=== PATIENT | male | born 1970 | race Two or more races ===

== ENCOUNTER 2024-06-14 11:41 | Inpatient (IN) | payer OTHER ==
[~2024-06-14] VITALS: Ht 167.6 cm; Wt 90.3 kg
[2024-06-14 16:54] VITALS: BP 113/71; PULSE 90; RESP 18; TEMP 98.2; O2SAT 95
[2024-06-14 17:17] LABS: Eosinophils # (auto) 0.2 10 ^3/uL (0-0.8); Monocytes # (auto) 0.7 10 ^3/uL (0-1.3)
[2024-06-14 17:18] LABS: Basophils # (auto) 0 10 ^3/uL (0-0.2); Basophils % (auto) 0.7 % (0.0-2.0); Eosinophils % (auto) 2.4 % (0.0-7.0); Hematocrit 38.2 % (41.0-53.0); Hemoglobin 12.5 g/dL (13.5-17.5); Lymphocytes # (auto) 1.9 10 ^3/uL (0.4-5.4); Lymphocytes % (auto) 26.7 % (10.0-50.0); Mean Corpuscular Hemoglobin 23.4 pg (28.0-32.0); Mean Corpuscular Hgb Conc. 32.6 g/dL (32.0-36.0); Mean Corpuscular Volume 71.9 fL (80.0-100.0); Monocytes % (auto) 9.9 % (0.0-12.0); Neutrophils # (auto) 4.3 10 ^3/uL (1.6-8.6); Neutrophils % (auto) 60.3 % (37.0-80.0); Nucleated Red Blood Cells % 0.1 %; Platelet Count (auto) 249 10^3/uL (140-450); Red Blood Cells 5.31 10^6/uL (4.5-5.90); Red Cell Distribution Width 18.3 % (11.8-14.3); White Blood Cell 7.1 10^3/uL (4.4-10.8)
[2024-06-14 17:43] VITALS: PULSE 90; RESP 18
[2024-06-14 18:54] VITALS: PULSE 78
--- NOTE | 2024-06-14 19:18 | DVHINCON2 ---
Date Seen: June 14, 2024 Referring Physician MD Marlon Reason for Consultation Chest pain History of Present Illness This is a Gabonese-speaking 53-year-old male patient who was seen in the outpatient cardiac clinic by for recurrent chest pain. The patient was subsequently admitted to this facility for further workup. He is currently incarcerated. The patient reports he has been experiencing intermittent chest pain for the last few years. He describes it as unprovoked, intermittent, "pinprick-like" in nature, left-sided and nonradiating. He denies any associated symptoms. Initial twelve lead electrocardiogram done at time of assessment and reveals normal sinus rhythm with left bundle branch block. Unable to verify if this is a new left bundle branch block given that this is t he patient's first visit to this facility. Initial troponin levels have been negative. Significant past medical history includes hypertension, dyslipidemia, low testosterone with testosterone hormone replacement, previous tobacco use and previous methamphetamine use. The patient denies any previous cardiac workup. Past Medical History Past medical history reviewed. No other significant than mentioned above. Past Surgical History Cholecystectomy Family History Family history reviewed. Social History Patient has a 10 pack-year history, quit smoking approximately 12 years ago Admits to previous methamphetamine use, last time in 2009 Denies any alcohol use Allergies: Coded Allergies: Penicillins (Verified Allergy, Unknown, 06/14/24) PER PT Home Meds Home medications reviewed. Review of Systems Constitutional: No symptom reported Ears, Nose, & Throat: No symptom reported Eyes: No symptom reported Neurological: No symptoms reported Pulmonary/Respiratory: No symptoms reported Cardiovascular: Chest pain Gastrointestinal: No symptom reported Genitourinary: No symptom reported Musculoskeletal: No symptom reported Skin: No symptom reported Psychiatric: No symptom reported Endocrine: No symptom reported Hematologic/Lymphatic: No symptom reported Vital Signs Vital Signs Date Time Temp Pulse Resp B/P (MAP) Pulse Ox O2 Delivery O2 Flow Rate FiO2 06/14/24 18:54 78 06/14/24 17:43 18 Room Air* 0 21 06/14/24 16:54 98.2 113/71 (85) 95 98.2 Physical Exam General Appearance: Cooperative. Obese Pulmonary/Respiratory: Clear, bilateral breaths sounds. Cardiovascular/Chest: Regular rate and rhythm. Peripheral Pulses: 2+ Radial (R). 2+ Radial (L). 2+ Pedal (R). 2+ Pedal (L) Abdominal Exam: Normal bowel sounds. Ankle Exam: Negative ankle edema Lower extremities: Negative lower extremity edema Neuro/Mental Status: A/OX4, coherent. Thoughts/Psych: Normal thought pattern. Appropriate mood and affect. Good judgment and insight. Appearance: No acute distress. Skin Exam: Gynecomastia. Normal color. Warm and dry. Labs/Diagnostic Data Labs Test 06/14/24 18:15 06/14/24 17:02 Range/Units Troponin I High Sensitivity 3 L </=54 ng/L White Blood Count 7.1 4.4-10.8 10^3/uL Red Blood Count 5.31 4.5-5.90 10^6/uL Hemoglobin 12.5 L 13.5-17.5 g/dL Hematocrit 38.2 L 41.0-53.0 % Mean Corpuscular Volume 71.9 L 80.0-100.0 fL Mean Corpuscular Hemoglobin 23.4 L 28.0-32.0 pg Mean Corpuscular Hemoglobin Concent 32.6 32.0-36.0 g/dL Red Cell Distribution Width 18.3 H 11.8-14.3 % Platelet Count 249 140-450 10^3/uL Mean Platelet Volume 7.4 6.9-10.8 fL Neutrophils (%) (Auto) 60.3 37.0-80.0 % Lymphocytes (%) (Auto) 26.7 10.0-50.0 % Monocytes (%) (Auto) 9.9 0.0-12.0 % Eosinophils (%) (Auto) 2.4 0.0-7.0 % Basophils (%) (Auto) 0.7 0.0-2.0 % Neutrophils # (Auto) 4.3 1.6-8.6 10 ^3/uL Lymphocytes # (Auto) 1.9 0.4-5.4 10 ^3/uL Monocytes # (Auto) 0.7 0-1.3 10 ^3/uL Eosinophils # (Auto) 0.2 0-0.8 10 ^3/uL Basophils # (Auto) 0 0-0.2 10 ^3/uL Nucleated Red Blood Cells 0.1 % B-Type Natriuretic Peptide 12.58 0-100 pg/mL Assessment Chest pain, rule out coronary ischemia Rule out structural heart disease Hypertension Dyslipidemia Low testosterone with previous hormone replacement Gynecomastia History of tobacco use History of methamphetamine use Obesity Plan/Recommendation We will continue with the following plan/recommendations (Dr. Tineo): Case discussed with . We will proceed with obtaining a transthoracic echocardiogram to evaluate cardiac function. Given the patient's clinical presentation, comorbidities, and twelve lead electrocardiogram, we will offer the patient a nuclear stress test. Plan discussed with the patient full detail. Patient agreeable. We will schedule the patient at soonest availability on 06/15/2024. In the meantime, continue with blood pressure control, single antiplatelet therapy, and lipid-lowering agent. Close Cardiac monitoring and notify cardiology team for any ECG changes. Thank you for allowing us to care for this patient. Please call with any questions or concerns. Critical care time spent: 43 minutes This medical document was created using an electronic medical record system with voice recognition software and computerized dictation system. Although this document has been carefully reviewed, there might still be some phonetic and typographical errors. Occasional wrong-word or ``sound-alike substitutions may have occurred due to the inherent limitations of voice recognition software. These areas are purely typographical due to imperfections of the software programs and do not reflect any compromise in the patient's medical care. Please read the chart carefully and recognize, using context, where these substitutions have occurred. Plan discussed with: Patient NYHA Physical activity limitations: NA Date of Service: June 14, 2024 Billing Provider: LALI DEGROOT Cardiology Common Codes: 10677-XFULXSK INP/OBS CARE (High) Cardiology Consultation Codes: 04433-[id number] CONSULT <45MIN LALI DEGROOT June 14, 2024 19:18
--- NOTE | 2024-06-14 19:29 | DVH ---
CHEST RADIOGRAPH Indication: CHEST PAIN Technique: Single frontal view of the chest was obtained COMPARISON: None FINDINGS: Lines and Tubes: None Lungs: Clear Pleura: No effusion. No pneumothorax. Cardiomediastinal contours: Unremarkable IMPRESSION: No abnormality demonstrated.
[2024-06-14 20:00] VITALS: PULSE 84; PULSE 89; RESP 20; O2SAT 92
[2024-06-14] MEDS ORDERED: NITROGLYCERIN 0.4 MG SL TAB SL PRN (20:30)
[2024-06-14] MEDS ORDERED: HYDROcodone-ACET 10/325MG TAB PO PRN (20:30)
[2024-06-14 20:31] LABS: Alanine Aminotransferase 21 U/L (7-40); Albumin 4.5 g/dL (3.2-4.8); Anion Gap 11 (5-15); Aspartate Aminotransferase 19 U/L (13-40); BUN/Creatinine Ratio 15.4 (10.0-20.0); Bilirubin, Total 0.7 mg/dL (0.2-1.0); Blood Urea Nitrogen 12 mg/dL (9-23); Calcium 9.6 mg/dL (8.7-10.4); Carbon Dioxide 26 mmol/L (20-31); Chloride 104 mmol/L (98-107); Cholesterol 135 mg/dL (< 200); LDL Cholesterol 89 mg/dL (< 100); Potassium 3.7 mmol/L (3.5-5.1); Sodium 141 mmol/L (136-145); Total Protein 7.6 g/dL (5.7-8.2); Triglycerides 103 mg/dL (< 150)
[2024-06-14 20:32] LABS: Alkaline Phosphatase 138 U/L (46-116); Glucose 121 mg/dL (74-106); HDL Cholesterol 39 mg/dL (40-59)
[2024-06-14 21:00] VITALS: BP 121/71; PULSE 84; RESP 20; TEMP 98; O2SAT 92
--- NOTE | 2024-06-14 21:09 | DVHHP ---
ADMIT DATE: 06/14/2024 ATTENDING PHYSICIAN: Marito Mason MD CHIEF COMPLAINT: Chest pain. HISTORY OF PRESENT ILLNESS: This is a 53-year-old male, [facility] inmate, who was seen in cardiac clinic today for chest pain, which is described as 3-4 times a week, left chest, pinching, 5-8/10 on scale, without radiation, not associated with any activities, usually lasting 5-15 minutes and with episodes of diaphoresis, but no loss of consciousness, which has been ongoing for the last 3 months. Due to nature of symptoms, the patient is now being admitted for further management. PAST MEDICAL HISTORY: He has hypertension, diabetes, and hyperlipidemia. PAST SURGICAL HISTORY: He has had cholecystectomy. FAMILY HISTORY: Father had heart disease. Mother had diabetes. SOCIAL HISTORY: He has had 20 pack years of smoking and quit greater than 10 years ago. He had moderate use of alcohol and he had frequent use of crystal methamphetamine. He is . He has 2 children, normally resides in [place], has been incarcerated for 14 years with 2 left. Denies any exercise program. REVIEW OF SYSTEMS: GENERAL: Denies any recent weight changes. HEENT: Denies any loss of consciousness, severe headache, blurring of vision. CARDIOVASCULAR: As per HPI. RESPIRATORY: Denies cough, shortness of breath, hemoptysis. GI: Denies nausea, vomiting, diarrhea, or constipation. : Noncontributory. NEURO: Denies any focal deficits. PHYSICAL EXAMINATION: VITAL SIGNS: Temperature is 98.2 with a blood pressure of 113/71, a heart rate of 90, respiratory rate of 18, O2 sats 95% on room air. HEENT: Normocephalic, anicteric sclerae, pink conjunctivae. EOMI. NECK: Supple. No JVD, mass, or bruit. CHEST: Good equal excursion bilateral, nontender. HEART: S1, S2 regular. There is no click, murmur, gallop. LUNGS: Good equal air exchange bilateral. Clear to auscultation. ABDOMEN: Soft, benign. NEURO: He is awake, alert and oriented x 4. LAB DATA: We have WBC of 7.1 with a hemoglobin 12.5 and a platelet of 249. Chemistries are pending. Troponin is 3, repeat is also 3. EKG shows sinus rhythm at approximately 80 beats per minute. There is no left bundle branch block. Chest x-ray is no abnormality noted. ASSESSMENT: Chest pain, rule out PR; hypertension; and diabetes. PLAN: Admit to tele. Condition stable. Regular diet. IV hep lock, serial troponins. We will hold metformin. We will start aspirin and atorvastatin. We will use Lovenox for DVT prophylaxis. We will continue with lisinopril. We will get a Cardiology consult with Dr. Tineo. MD RHONDA Narayanan/HEM TID: [id number] RECEIPT: [id number]
[2024-06-14] MEDS: ATORVASTATIN 20 MG TAB PO SCH (22:57)
[2024-06-15] VITALS (13 sets, daily range): BP systolic 95–124; BP diastolic 51–78; PULSE 62–94; RESP 12–20; TEMP 97.3–98.3; O2SAT 92–96
[2024-06-15] MEDS: REGADENOSON 0.4 MG/5 ML SYRG IV ONE (08:00)
--- NOTE | 2024-06-15 08:04 | ECG ---
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
[2024-06-15] MEDS: ASPirin 81 mg TAB PO SCH (10:37)
[2024-06-15] MEDS: LISINOPRIL 5 MG TAB PO SCH (10:37)
[2024-06-15] MEDS: ENOXAPARIN SOD 40 MG/0.4 ML SYRINGE SC SCH (10:38)
--- NOTE | 2024-06-15 10:49 | DVHPN2 ---
Consult Progress Note Date Seen: June 15, 2024 Subjective Review of Systems: CVS:Normal, RESPIRATORY:Normal, NEURO:Normal Objective vital signs Vital Sign Date Time Temp Pulse Resp B/P (MAP) Pulse Ox O2 Delivery O2 Flow Rate FiO2 06/15/24 10:37 117/62 06/15/24 08:59 98.3 77 19 93 98.3 06/15/24 08:20 Room Air* 0 21 Total Intake and Output 06/14/24 06/14/24 06/15/24 15:00 23:00 07:00 Intake Total 0 ml Balance 0 ml medications Current Medications Medications Dose Ordered Sig/Jesse Route Start Time Stop Time Status Last Admin Dose Admin Aspirin 81 mg DAILY PO 06/15/24 10:00 06/15/24 10:37 81 MG Atorvastatin Calcium 20 mg HS PO 06/14/24 22:00 06/14/24 22:57 20 MG Lisinopril 5 mg DAILY PO 06/15/24 10:00 06/15/24 10:37 5 MG Enoxaparin Sodium 40 mg DAILY SC 06/15/24 10:00 06/15/24 10:38 40 MG Acetaminophen/ Hydrocodone Bitart 1 tab Q4HP PRN PO 06/14/24 20:30 Nitroglycerin 0.4 mg Q5MINP PRN SL 06/14/24 20:30 Examination: LUNGS:Normal, CVS:Normal, NEURO:Normal laboratory and microbiology Laboratory Tests 06/14/24 17:02 Test 06/14/24 17:02 Range/Units Serum Glucose 121 H 74-106 mg/dL Problem List/Assessment/Plan Problem List/Assessment/Plan Chest pain rule out coronary ischemia Rule out structural heart disease Hypertension Dyslipidemia Pre-diabetes, newly diagnosed Low testosterone with previous hormone replacement Gynecomastia History of tobacco use History of methamphetamine use Obesity Plan/Recommendation (Dr. Tineo) Case discussed with . We will proceed with obtaining a transthoracic echocardiogram to evaluate cardiac function. Given the patient's clinical presentation, comorbidities, and twelve lead electrocardiogram, he has been scheduled for a coronary angiogram with cardiac catheterization on 06/15/2024. All risks and benefits of the procedure were discussed in detail. All questions answered. In the meantime, continue with blood pressure control, single- antiplatelet therapy, and lipid-lowering agent. Close Cardiac monitoring and notify cardiology team for any ECG changes. Thank you for allowing us to care for this patient. Please call with any questions or concerns. This medical document was created using an electronic medical record system with voice recognition software and computerized dictation system. Although this document has been carefully reviewed, there might still be some phonetic and typographical errors. Occasional wrong-word or ``sound-alike substitutions may have occurred due to the inherent limitations of voice recognition software. These areas are purely typographical due to imperfections of the software programs and do not reflect any compromise in the patient's medical care. Please read the chart carefully and recognize, using context, where these substitutions have occurred. Plan discussed with: Patient, Other Date of Service: June 15, 2024 Billing Provider: SHAKIR LAMAS Cardiology Common Codes: [id number]-[id number] INP/OBS CARE(Mod) SHAKIR LAMAS June 15, 2024 10:49
[2024-06-15 11:36] LABS: Anion Gap 9 (5-15); Carbon Dioxide 27 mmol/L (20-31); Chloride 105 mmol/L (98-107); Potassium 3.9 mmol/L (3.5-5.1); Sodium 141 mmol/L (136-145)
[2024-06-15 11:37] LABS: Calcium 9.7 mg/dL (8.7-10.4)
[2024-06-15 11:38] LABS: INR 0.98 (0.9-1.15); Partial Thromboplastin Time 28.8 SEC (24.5-34.5); Prothrombin Time 10.4 sec (9.3-11.8)
[2024-06-15 11:42] LABS: BUN/Creatinine Ratio 14.1 (10.0-20.0); Blood Urea Nitrogen 10 mg/dL (9-23)
[2024-06-15 11:43] LABS: Glucose 117 mg/dL (74-106)
--- NOTE | 2024-06-15 12:55 | DVHSR ---
APPROVED REPORT EXAM: Two-dimensional and M-mode echocardiogram with Doppler and color Doppler. Blood Pressure: 100/67 mmHg INDICATION Eval cardiac function RISK FACTORS Height: 66, Weight: 196 DIMENSIONS LVDd4.3 (3.8-5.7cm)LA (2D) (1.9-4.0cm)Aortic Root4.1 (2.0-3.7cm) LVDs3.2 (2.5-4.0cm)LA (MM) (1.9-4.0cm)Aortic Cusp Exc1.9 (1.5-2.0cm) EF (%) 50.0 (55-70%)Rt. Atrium (1.9-4.0cm)Asc. Aorta cm IVSd1.1 (0.7-1.1cm)RV (D) (1.8-2.4cm) PWd1.2 (0.7-1.1cm) Mitral Valve MitralMitral Stenosis E wave0.47m/sMV Mean GR.mmHg A wave0.83m/sMV Peak GR.mmHg E/A ratio0.62D MVAcm2 DECEL [id number] 1/2 Scvo61yd IVRTmsDop MVA3.04cm2 Aortic Valve Aortic ValveAortic Stenosis V10.87m/Giorgi Mean GR.3mmHg V21.12m/Giorgi Peak GR.5mmHg LVOT Diameter2.1 (1.8-2.4cm)Doppler AVA2.69cm2 AI P 1/2 Dhgw789.22ms Pulmonic Valve V20.95m/s Other Information Technically limited study due to body habitus. Conclusion lvef 50% by visual estimate low normal function normal rv function normal atria no severe valve abnormalities noted
[2024-06-15] MEDS: fentaNYL CITRATE 100 MCG/2 ML VL ONE ×2 (13:11→14:09)
[2024-06-15] MEDS: VERAPAMIL 2.5MG/ML INJ 2ML VIAL IV ONE ×2 (13:11→14:08)
[2024-06-15] MEDS: ANGIOMAX 250 MG VIAL IV ONE (13:11)
[2024-06-15] MEDS: MIDAZOLAM HCL 2MG/2ML 2ml VIAL (1mg/ml) ONE ×2 (13:11→14:09)
[2024-06-15] MEDS: SODIUM CHL 0.9% 0 ML ONE (13:11)
[2024-06-15] MEDS: LIDOCAINE 2%HCL (LOCAL ANESTH.) INJ 20ML MDV ONE ×2 (13:12→14:09)
[2024-06-15] MEDS: IODIXANOL 320MG/ML 100ML BTL IV ONE (13:59)
--- NOTE | 2024-06-15 14:39 | DVHOP2 ---
Operative Report Operative Report CARDIAC REGULATORY SCIENTIST PROCEDURE REPORT [place], [place] Date of Service: 06/15/24 Business Practices Supervisor: Brandon Robles MD PROCEDURES PERFORMED: Coronary angiogram, left heart catheterization, conscious sedation administration and supervision, less than 15 minutes; fluoroscopy use and interpretation. PREOPERATIVE DIAGNOSES: ACS POSTOP DIAGNOSIS: ACS DESCRIPTION OF PROCEDURE: The patient or appropriate family signed informed consent understanding the risks, benefits and alternatives of the procedure, they wished to proceed. The patient was brought to the cardiac carpenter labor supervisor [place] The patient was prepped in a sterile fashion. Sedation was used per cardiac cath protocol. I administered 2 mL of 2% lidocaine to the right wrist. With an antegrade front wall puncture. I cannulated the right radial artery and placed a 6-[place] slender. Next, an intra-arterial spasmolytic was administered. Next, a - 6[place] catheter and JR4 and were used for coronary angiogram and LVEDP measurement and pressure pullback. At the completion of procedure, all guides and wires were removed, and there were no immediate complications. FINDINGS: RCA: Moderate vessel off the right sinus of Valsalva, there is no severe flow limiting stenosis. 20% prox RCA stenosis. severe sluggish flow suggestive of microvascular disesae LEFT MAIN: Moderate size left main, it bifurcates into LAD and circumflex. no stenosis. CIRCUMFLEX: Moderate caliber vessel coming off the left main with no flow limiting stenosis. LAD: LAD is a moderate caliber vessel coming of the left main. no severe stenosis. mid LAD with 20% stenosis, distal LAD with 30% stenosis. very sluggigsh flow suggestive of microvascular disesae LVEDP of 17 mmhg CONCLUSIONS: 1. mild cad 2. microvascular disease PLAN: Aggressive risk factor modification and medical management for the patient. DAPT x 1 year uninterrupted BRANDON ROBLES MD June 15, 2024 14:39
[2024-06-15] MEDS: HEPARIN SODIUM (PORCINE) 5000 UNITS/ML 1ML VIAL ONE (14:45)
--- NOTE | 2024-06-15 15:19 | DVHPN ---
DATE: 06/15/2024 ATTENDING PHYSICIAN: Dr. Marito Mason SUBJECTIVE: The patient is lying in bed. He is currently having blood drawn. He is comfortable. He is in no active distress. He states he does not have chest pain at this time nor does he have any other complaints. Specifically, he denies cough, shortness of breath, fever. No untoward events have been noted. OBJECTIVE: VITAL SIGNS: Temperature is 98.3 with a blood pressure of 117/62, heart rate of 77, respiratory rate of 19, O2 saturation is 93% on room air. HEART: S1, S2 regular. No click, murmur, or gallop. LUNGS: Good equal air exchange bilateral. Clear to auscultation. ABDOMEN: Soft, nondistended, nontender. Bowel sounds positive. No mass, guarding, or rebound. NEUROLOGIC: He is awake, alert, and oriented x4 without focal deficits. LABORATORY DATA: Troponin x2 is negative. Thyroid is normal. TSH is normal. ASSESSMENT: * Chest pain. * Hypertension. * Diabetes. PLAN: We will continue with aspirin and atorvastatin for the cardiac protection, Lovenox for DVT prophylaxis, and lisinopril for hypertension. I have encouraged the patient to ambulate. He is currently scheduled for angiogram. MD RHONDA Narayanan/SU TID: [id number] RECEIPT: [id number]
[2024-06-16] VITALS (7 sets, daily range): BP systolic 99–107; BP diastolic 52–71; PULSE 77–88; RESP 15–17; TEMP 36.7; O2SAT 93–96
[2024-06-16 07:21] LABS: Basophils # (auto) 0 10 ^3/uL (0-0.2); Hemoglobin 12.6 g/dL (13.5-17.5); Monocytes # (auto) 0.7 10 ^3/uL (0-1.3); Neutrophils # (auto) 3.7 10 ^3/uL (1.6-8.6)
[2024-06-16 07:25] LABS: Basophils % (auto) 0.3 % (0.0-2.0); Eosinophils # (auto) 0.3 10 ^3/uL (0-0.8); Eosinophils % (auto) 3.8 % (0.0-7.0); Hematocrit 38.3 % (41.0-53.0); Lymphocytes % (auto) 30.5 % (10.0-50.0); Mean Corpuscular Hemoglobin 23.6 pg (28.0-32.0); Mean Corpuscular Hgb Conc. 32.8 g/dL (32.0-36.0); Mean Corpuscular Volume 71.9 fL (80.0-100.0); Monocytes % (auto) 9.8 % (0.0-12.0); Neutrophils % (auto) 55.6 % (37.0-80.0); Platelet Count (auto) 230 10^3/uL (140-450); Red Blood Cells 5.32 10^6/uL (4.5-5.90); White Blood Cell 6.7 10^3/uL (4.4-10.8)
[2024-06-16 07:33] LABS: Anion Gap 8 (5-15); Carbon Dioxide 24 mmol/L (20-31); Chloride 106 mmol/L (98-107); Potassium 3.9 mmol/L (3.5-5.1); Sodium 138 mmol/L (136-145)
[2024-06-16 07:35] LABS: Calcium 9.4 mg/dL (8.7-10.4)
[2024-06-16 07:39] LABS: BUN/Creatinine Ratio 18.2 (10.0-20.0); Blood Urea Nitrogen 12 mg/dL (9-23); Glucose 99 mg/dL (74-106)
[2024-06-16] MEDS ORDERED: LISI-275 PO (16:12)
[2024-06-16] MEDS ORDERED: ASPI-325 PO (16:12)
--- NOTE | 2024-06-16 17:25 | DVHDS ---
DATE OF DISCHARGE: 06/16/2024 ATTENDING PHYSICIAN: Marito Mason MD CHIEF COMPLAINT ON ADMISSION: Chest pain. HISTORY OF PRESENT ILLNESS: This is a 53-year-old male, [facility] inmate who was seen in cardiac clinic on the day of admission for chest pain. Due to the nature of symptoms with a history of diabetes and hypertension, the patient was referred for admission for further workup. ADMITTING DIAGNOSES: Chest pain, rule out myocardial infarction, hypertension, and diabetes. HOSPITAL COURSE: The patient was admitted to telemetry in stable condition. He was started on a regular diet. Metformin was withheld. He was resumed on aspirin and atorvastatin. He was started on Lovenox for DVT prophylaxis. He was also continued on lisinopril for hypertension. Cardiology consult with Dr. Tineo was requested. HOSPITAL COURSE: The patient admitted to [facility]. Serial troponins revealed normal x 3. EKG was unremarkable. The patient was taken to the cardiac clay processing labourer, underwent coronary angiography. She was found to have mild CAD and microvascular disease. Tolerated the procedure well. Returned to the medical floor, peoples hospitaletry, observed overnight without any untoward events. The patient was informed of the findings. I also informed the patient treatment is lifestyle modification, in which she should consider exercise as well as a diet conducive to good heart health, he agrees. He has now been discharged back to the care of the [facility] authorities in good and stable condition. 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 Chest pain, acute myocardial infarction ruled out. Diabetes and hypertension. DISCHARGE MEDICATIONS: Instructed to resume prehospitalization medications and to follow up with [facility] p.r.n. MD RHONDA Narayanan/MANDY TID: [id number] RECEIPT: [id number]
== END 2024-06-16 19:10 | DRG 287 ==
LOC: EEVIPCON 11:41 → OVERFLOW 11:41 → TELE-WESTW 15:59
PROVIDERS: ADMIT Internal Medicine; ATTEND Internal Medicine
PROC: B211YZZ Fluoroscopy of Multiple Coronary Arteries using Other Contrast (ICD-10-PCS; principal; 2024-06-15)
PROC: 4A023N7 Measurement of Cardiac Sampling and Pressure, Left Heart, Percutaneous Approach (ICD-10-PCS; 2024-06-15)
DX: I25.10 Atherosclerotic heart disease of native coronary artery without angina pectoris (principal); I10 Essential (primary) hypertension; E78.5 Hyperlipidemia, unspecified; E66.9 Obesity, unspecified; N62 Hypertrophy of breast; I44.7 Left bundle-branch block, unspecified; F15.90 Other stimulant use, unspecified, uncomplicated; E11.9 Type 2 diabetes mellitus without complications; Z90.49 Acquired absence of other specified parts of digestive tract; Z82.49 Family history of ischemic heart disease and other diseases of the circulatory system; Z83.3 Family history of diabetes mellitus; Z87.891 Personal history of nicotine dependence; Z68.31 Body mass index [BMI] 31.0-31.9, adult
CPT/HCPCS: 36415; 71045; 80048; 80053; 80061; 83036; 83880; 84443; 84484; 85025; 85610; 85730; 87081; 93005; 93306; 99152; G0378; J2250; Q9967